=== PATIENT | male | born 1975 | race Caucasian/White ===

== ENCOUNTER 2016-12-03 06:23 | Emergency (ER) | payer OTHER ==
[~2016-12-03] VITALS: Ht 182.9 cm; Wt 105.0 kg
[~2016-12-03 06:23] MED LIST: LORT5TAB PO; SULF1TAB47 PO; Z.0.NO CURRENT MEDS
[2016-12-03 06:28] VITALS: BP 125/84; PULSE 107; RESP 20; TEMP 99.1; O2SAT 97
[2016-12-03 06:39] VITALS: BP 137/80; PULSE 111; RESP 20; TEMP 99.1; O2SAT 96
[2016-12-03] MEDS ORDERED: LISI10TA3 PO (06:43)
[2016-12-03] MEDS ORDERED: SODIUM CHLOR 0.9% 1000 ML INJ 1,000 ML IV SCH (06:58)
[2016-12-03] MEDS ORDERED: ONDANSETRON HCL 4 MG/2 ML VIAL IVP ONE (07:00)
[2016-12-03] MEDS ORDERED: DIPHENOXYLATE/ATROPINE 2.5 MG/0.025 MG TAB PO ONE (07:00)
--- NOTE | 2016-12-03 07:05 | PD ---
HPI Chief Complaint: GI Complaint Time Seen by Provider: 06:53 Travel History International Travel<30 days: No Contact w/Intl Traveler<30days: No Traveled to known affect area: No History of Present Illness HPI 41-year-old male complains of abdominal discomfort, nausea vomiting diarrhea. Patient states that the symptoms started last night. Patient states that he had low-grade fever at home. Patient denies headache. Patient denies any chest pain or shortness of breath. Patient states that he has abdominal discomfort. Patient denies any dysuria or frequency. Patient denies any back pain. PFSH Past Medical History Arthritis: Yes Diminished Hearing: No Hypertension: Yes Immunizations Current: No Past Surgical History Other Surgery: Yes (sinus surg 2004) Social History Alcohol Use: No Tobacco Use: No Substance Use: No Allergies-Medications (Allergen,Severity, Reaction): Coded Allergies: No Known Allergies (Verified , 12/03/16) Reported Meds & Prescriptions Reported Meds & Active Scripts Active Reported Lisinopril 10 Mg Tab 10 Mg PO DAILY Review of Systems General / Constitutional: No: Fever Eyes: No: Visual changes HENT: No: Headaches Cardiovascular: No: Chest Pain or Discomfort Respiratory: No: Shortness of Breath Gastrointestinal: Positive: Nausea, Vomiting, Diarrhea, Abdominal Pain Genitourinary: No: Dysuria Musculoskeletal: No: Pain Skin: No Rash Neurologic: No: Weakness Psychiatric: No: Depression Endocrine: No: Polydipsia Hematologic/Lymphatic: No: Easy Bruising Physical Exam Narrative GENERAL: Well-nourished, well-developed patient. SKIN: Focused skin assessment warm/dry. HEAD: Normocephalic. EYES: No scleral icterus. No injection or drainage. NECK: Supple, trachea midline. No JVD or lymphadenopathy. CARDIOVASCULAR: Regular rate and rhythm without murmurs, gallops, or rubs. RESPIRATORY: Breath sounds equal bilaterally. No accessory muscle use. GASTROINTESTINAL: Abdomen soft, non-tender, nondistended. MUSCULOSKELETAL: No cyanosis, or edema. BACK: Nontender without obvious deformity. No CVA tenderness. Neurologic exam normal. Data Data Last Documented VS Vital Signs Date Time Temp Pulse Resp B/P Pulse Ox O2 Delivery O2 Flow Rate FiO2 12/03/16 07:14 18 98 Room Air 12/03/16 06:39 99.1 111 137/80 Orders Complete Blood Count With Diff (12/03/16 06:58) Comprehensive Metabolic Panel (12/03/16 06:58) Lipase (12/03/16 06:58) Iv Access Insert/Monitor (12/03/16 06:58) Ecg Monitoring (12/03/16 06:58) Oximetry (12/03/16 06:58) Ondansetron Inj (Zofran Inj) (12/03/16 07:00) Sodium Chlor 0.9% 1000 Ml Inj (Ns 1000 M (12/03/16 06:58) Diphenoxylate/Atropine Tab (Lomotil Tab) (12/03/16 07:00) Labs Laboratory Tests Test 12/03/16 07:08 White Blood Count 15.5 TH/MM3 Red Blood Count 5.66 MIL/MM3 Hemoglobin 16.4 GM/DL Hematocrit 49.3 % Mean Corpuscular Volume 87.1 FL Mean Corpuscular Hemoglobin 29.0 PG Mean Corpuscular Hemoglobin 33.3 % Concent Red Cell Distribution Width 12.6 % Platelet Count 185 TH/MM3 Mean Platelet Volume 10.3 FL Neutrophils (%) (Auto) 92.3 % Lymphocytes (%) (Auto) 2.5 % Monocytes (%) (Auto) 4.4 % Eosinophils (%) (Auto) 0.2 % Basophils (%) (Auto) 0.6 % Neutrophils # (Auto) 14.3 TH/MM3 Lymphocytes # (Auto) 0.4 TH/MM3 Monocytes # (Auto) 0.7 TH/MM3 Eosinophils # (Auto) 0.0 TH/MM3 Basophils # (Auto) 0.1 TH/MM3 CBC Comment DIFF FINAL Differential Comment Sodium Level 138 MEQ/L Potassium Level 4.0 MEQ/L Chloride Level 104 MEQ/L Carbon Dioxide Level 27.5 MEQ/L Anion Gap 7 MEQ/L Blood Urea Nitrogen 16 MG/DL Creatinine 1.30 MG/DL Estimat Glomerular Filtration 61 ML/MIN Rate Random Glucose 114 MG/DL Calcium Level 9.5 MG/DL Total Bilirubin 2.3 MG/DL Aspartate Amino Transf 23 U/L (AST/SGOT) Alanine Aminotransferase 43 U/L (ALT/SGPT) Alkaline Phosphatase 81 U/L Total Protein 8.0 GM/DL Albumin 4.2 GM/DL Lipase 174 U/L MDM Medical Decision Making Medical Screen Exam Complete: Yes Emergency Medical Condition: Yes Interpretation(s) 7:51 AM. CBC WBC 15.5. 92 neutrophil. CMP within normal limit. Total bili 2.3. Differential Diagnosis Differential diagnosis including gastroenteritis, gastritis, PUD, pancreatitis, cholecystitis, colitis, UTI, pyelonephritis, nephrolithiasis, electrolyte imbalance, dehydration. Narrative Course 41-year-old male with abdominal discomfort, nausea vomiting diarrhea. Normal saline solution 1 L IV bolus. Zofran 4 mg IV. Lomotil one tablet by mouth given. Diagnosis Primary Impression: Gastroenteritis Patient Instructions: General Instructions Additional Instructions: Clear fluids today and advance diet as tolerated. Take medication as needed. Follow-up with personal physician. Return if persistent problem or worse. Med/Other Pt SpecificInfo: Prescription(s) given Scripts Diphenoxylate-Atropine (Lomotil)2.5-0.025 Mg Tab1 Tab PO Q6H PRN (DIARRHEA) #10 TAB Ref 0 Prov:Kishore Tavarez MD 12/03/16 Ondansetron Odt (Zofran Odt)4 Mg Tab4 Mg SL Q6HR PRN (Nausea/Vomiting) #10 TAB Prov:Kishore Tavarez MD 12/03/16 Disposition: 01 DISCHARGE HOME Condition: Stable Kishore Tavarez MD Dec 03, 2016 07:05
[2016-12-03 07:14] VITALS: RESP 18; O2SAT 98
[2016-12-03 07:23] LABS: AUTOMATED NEUTROPHIL # 14.3 TH/MM3 (1.8-7.7); BASOPHIL # 0.1 TH/MM3 (0-0.2); BASOPHIL % 0.6 % (0.0-2.0); EOSINOPHIL % 0.2 % (0.0-4.0); HEMATOCRIT 49.3 % (39.0-51.0); LYMPH % 2.5 % (9.0-44.0); LYMPHOCYTE # 0.4 TH/MM3 (1.0-4.8); MEAN CELL VOLUME 87.1 FL (80.0-100.0); MEAN CORPUSCULAR HGB CONC 33.3 % (32.0-36.0); MONO % 4.4 % (0.0-8.0); NEUT % 92.3 % (16.0-70.0); PLATELET COUNT 185 TH/MM3 (150-450); RED BLOOD COUNT 5.66 MIL/MM3 (4.50-5.90); RED CELL DISTRIBUTION WIDTH 12.6 % (11.6-17.2); WHITE BLOOD COUNT 15.5 TH/MM3 (4.0-11.0)
[2016-12-03 07:25] LABS: HEMO FLAGS DIFF FINAL
[2016-12-03 07:33] LABS: CHLORIDE 104 MEQ/L (98-107); SODIUM (NA) 138 MEQ/L (136-145)
[2016-12-03 07:37] LABS: ANION GAP 7 MEQ/L (5-15); BICARBONATE 27.5 MEQ/L (21.0-32.0); BLOOD UREA NITROGEN 16 MG/DL (7-18)
[2016-12-03 07:40] LABS: ALT (GPT) 43 U/L (12-78); AST (GOT) 23 U/L (15-37); GLOMERULAR FILTRATION RATE 61 ML/MIN (>89)
[2016-12-03 07:41] LABS: TOTAL BILIRUBIN ADULT 2.3 MG/DL (0.2-1.0)
[2016-12-03 07:43] LABS: ALKALINE PHOSPHATASE 81 U/L (45-117)
[2016-12-03] MEDS ORDERED: LOMO2.5T PO (08:23)
[2016-12-03] MEDS ORDERED: ZOFR4TAB3 SL (08:23)
== END 2016-12-03 08:42 | disposition home or self-care (01) ==
LOC: PHED 06:23
DX: K52.9 Noninfective gastroenteritis and colitis, unspecified (principal); I10 Essential (primary) hypertension
CPT/HCPCS: 80053; 83690; 85025; 96374; 99284; J2405; J7030